=== PATIENT | male | born 1980 | race Caucasian/White ===

== ENCOUNTER 2018-06-09 14:11 | Emergency (ER) | payer BC ==
--- NOTE | 2018-06-09 14:23 | EDM.PDOC ---
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 Pt stated, he does not have good night sleeps, because he wake up 4-5 times at night, due to numbness at his left arm, S/P ulnar nerve relocation at the elbow. His girlfriend told him he is snoring really loud at night. He did not have a sleep study in the past. No trauma, his favored food is pasta, No C/P no N/V/D No diaphoresis. No other acute medical issues. BP 154/74 Pulse 82 RR 17 Pulse ox 97 % on RA Temp 36.4 Onset Date: 06/09/18 Onset Time: 13:00 Duration: Minutes:, Intermittent Location: Reports: Generalized Quality: Reports: Other (numbness left forearm+) Severity: Moderate Improves with: Reports: Rest Worsens with: Reports: Movement Context: Reports: Other (near syncopy) Associated Symptoms: Reports: Syncope (extremely tired, lethargic) - Related Data Allergies Allergy/AdvReac Type Severity Reaction Status Date / Time Penicillins Allergy unknown Verified 10/03/15 07:18 Home Meds: Home Meds Losartan/Hydrochlorothiazide [Losartan-HCTZ 50-12.5 MG] 1 each PO DAILY #10 tablet 06/09/18 [Rx] Past Medical History HEENT History: Reports: Impaired Vision Gastrointestinal History: Reports: GERD Neurological History: Reports: Headaches, Chronic Psychiatric History: Reports: Depression Dermatologic History: Reports: Other (See Below) Other Dermatologic History: NONTHROMBOCYTOPENIA PURPURAS - Past Surgical History GI Surgical History: Reports: Appendectomy ED ROS GENERAL - Review of Systems Review Of Systems: See Below Constitutional: Reports: Malaise, Weakness HEENT: Reports: No Symptoms Respiratory: Reports: No Symptoms Cardiovascular: Reports: Blood Pressure Problem Endocrine: Reports: No Symptoms GI/Abdominal: Reports: No Symptoms : Reports: No Symptoms Musculoskeletal: Reports: No Symptoms Skin: Reports: No Symptoms Neurological: Reports: Numbness (left forearm finger 4+5) Psychiatric: Reports: No Symptoms Hematologic/Lymphatic: Reports: No Symptoms Immunologic: Reports: No Symptoms ED EXAM, NEURO - Physical Exam Exam: See Below Exam Limited By: No Limitations General Appearance: Alert, WD/WN, Mild Distress, Obese (morbid) Eye Exam: Bilateral Eye: Normal Inspection Ears: Normal External Exam Nose: Normal Inspection Throat/Mouth: Normal Inspection Head Exam: Atraumatic, Normocephalic Neck: Normal Inspection, Supple, Non-Tender, Full Range of Motion Respiratory/Chest: No Respiratory Distress, Lungs Clear, Normal Breath Sounds Cardiovascular: Normal Peripheral Pulses, Regular Rate, Rhythm, No Edema, No Gallop, No JVD, No Murmur, No Rub GI/Abdominal: Normal Bowel Sounds, Soft, Non-Tender, No Organomegaly, No Abnormal Bruit, No Mass, Pelvis Stable (Male) Exam: Deferred Rectal (Males) Exam: Deferred Neurological: CN II-XII Intact, Normal Plantar Flexion, Oriented x 3, Difficulty Walking (because he is too tired) Back Exam: Normal Inspection, Full Range of Motion Extremities: Normal Inspection, Normal Range of Motion, Non-Tender, No Pedal Edema, Normal Capillary Refill Psychiatric: Normal Affect, Normal Mood Skin Exam: Warm, Dry, Intact, Normal Color, No Rash EKG INTERPRETATION EKG Date: 06/09/18 Time: 14:30 Rhythm: NSR Rate (Beats/Min): 76 [place]: Normal P-Wave: Present QRS: Normal ST-T: Normal QT: Normal Comparison: NA - No Prior EKG Course - Vital Signs Text/Narrative:: 37 y.o.w.m.morbid obese -360 lbs est- 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 Pt stated, he does not have good night sleeps, because he wake up 4-5 times at night, due to numbness at his left arm, S/P ulnar nerve relocation at the elbow. His girlfriend told him he is snoring really loud at night. He did not have a sleep study in the past. No trauma, his favored food is pasta, No C/P no N/V/D No diaphoresis. No other acute medical issues. 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 3) HTN, goal to be determined 4) Hypokalemia 5) Morbid obesity (360lbs est.) Tx: Potassium Reexam: Pt was feeling better, walked to the bathroom, BP meds were not given in the ed because his very initial BP -checked by parvin was 140/67) Plan: D/C with instructions Last Recorded V/S: Last Vital Signs Temp 36.4 C 06/09/18 14:13 Pulse 78 06/09/18 17:15 Resp 17 06/09/18 14:16 BP 158/76 H 06/09/18 17:15 Pulse Ox 100 06/09/18 15:00 Orthostatic Blood Pressure [ 160/101 Standing] Orthostatic Blood Pressure [ 161/99 Sitting] Orthostatic Blood Pressure [ 160/85 Supine] - Orders/Labs/Meds Orders: Active Orders 24 hr Category Date Time Status Orthostatic Vital Signs [RC] ASDIRECTED Care 06/09/18 15:46 Active Head wo Cont [CT] Stat Exams 06/09/18 14:35 Taken EKG 12 Lead [EK] Routine Ther 06/09/18 14:20 Ordered Labs: Laboratory Tests 06/09/18 06/09/18 06/09/18 Range/Units 14:23 14:40 14:40 WBC 9.8 (4.5-12.0) X10-3/uL RBC 5.18 (4.30-5.75) x10(6)uL Hgb 15.0 (11.5-15.5) g/dL Hct 44.2 (30.0-51.3) % MCV 85.4 (80-96) fL MCH 29.0 (27.7-33.6) pg MCHC 33.9 (32.2-35.4) g/dL RDW 12.8 (11.5-15.5) % Plt Count 258 (125-369) X10(3)uL MPV 8.8 (7.4-10.4) fL Neut % (Auto) 68.1 (46-82) % Lymph % (Auto) 23.6 (13-37) % Stevens % (Auto) 6.2 (4-12) % Eos % (Auto) 2 (1.0-5.0) % Baso % (Auto) 1 (0-2) % Neut # (Auto) 6.7 (1.6-8.3) # Lymph # (Auto) 2.3 (0.6-5.0) # Stevens # (Auto) 0.6 (0.0-1.3) # Eos # (Auto) 0.2 (0.0-0.8) # Baso # (Auto) 0.0 (0.0-0.2) # PT 9.9 (8.7-11.1) INR 1.02 (0.89-1.13) Sodium (135-145) mmol/L Potassium (3.5-5.3) mmol/L Chloride (100-110) mmol/L Carbon Dioxide (21-32) mmol/L BUN (7-18) mg/dL Creatinine (0.70-1.30) mg/dL Est Cr Clr Drug Dosing Estimated GFR (MDRD) (>60) BUN/Creatinine Ratio (9-20) Glucose (80-116) mg/dL POC Glucose 109 (80-116) mg/dL Hemoglobin A1c (4.5-6.2) % Calcium (8.6-10.2) mg/dL Magnesium (1.8-2.5) mg/dL Total Bilirubin (0.1-1.3) mg/dL Direct Bilirubin (0.10-0.20) mg/dL AST (5-25) IU/L ALT (12-36) U/L Alkaline Phosphatase (56-112) IU/L Troponin I (<0.017-0.056) ng/mL Total Protein (6.0-8.0) g/dL Albumin (3.5-5.2) g/dL Amylase (25-115) U/L Urine Color (YELLOW) Urine Appearance (CLEAR) Urine pH (5.0-6.5) Ur Specific [place] (1.010-1.025) Urine Protein (NEGATIVE) mg/dL Urine Glucose (UA) (NEGATIVE) mg/dL Urine Ketones (NEGATIVE) mg/dL Urine Occult Blood (NEGATIVE) Urine Nitrite (NEGATIVE) Urine Bilirubin (NEGATIVE) Urine Urobilinogen (NEGATIVE) mg/dL Ur Leukocyte Esterase (NEGATIVE) Urine RBC (0) Urine WBC (0) Ur Squamous Epith Cells (NS,R,O) Urine Bacteria (NS) Urine Opiates Screen (NEGATIVE) Ur Oxycodone Screen (NEGATIVE) Ur Propoxyphene Screen (NEGATIVE) Ur Barbituates Screen (NEGATIVE) Ur Tricyclics Screen (NEGATIVE) Ur Phencyclidine Scrn (NEGATIVE) Ur Amphetamine Screen (NEGATIVE) Urine MDMA Screen (NEGATIVE) U Benzodiazepines Scrn (NEGATIVE) U Cocaine Metab Screen (NEGATIVE) U Marijuana (THC) Screen (NEGATIVE) Ethyl Alcohol (<0.03) % 06/09/18 06/09/18 06/09/18 Range/Units 14:40 14:40 14:40 WBC (4.5-12.0) X10-3/uL RBC (4.30-5.75) x10(6)uL Hgb (11.5-15.5) g/dL Hct (30.0-51.3) % MCV (80-96) fL MCH (27.7-33.6) pg MCHC (32.2-35.4) g/dL RDW (11.5-15.5) % Plt Count (125-369) X10(3)uL MPV (7.4-10.4) fL Neut % (Auto) (46-82) % Lymph % (Auto) (13-37) % Stevens % (Auto) (4-12) % Eos % (Auto) (1.0-5.0) % Baso % (Auto) (0-2) % Neut # (Auto) (1.6-8.3) # Lymph # (Auto) (0.6-5.0) # Stevens # (Auto) (0.0-1.3) # Eos # (Auto) (0.0-0.8) # Baso # (Auto) (0.0-0.2) # PT (8.7-11.1) INR (0.89-1.13) Sodium 139 (135-145) mmol/L Potassium 3.3 L (3.5-5.3) mmol/L Chloride 103 (100-110) mmol/L Carbon Dioxide 28 (21-32) mmol/L BUN 14 (7-18) mg/dL Creatinine 1.1 (0.70-1.30) mg/dL Est Cr Clr Drug Dosing TNP Estimated GFR (MDRD) > 60 (>60) BUN/Creatinine Ratio 12.7 (9-20) Glucose 110 (80-116) mg/dL POC Glucose (80-116) mg/dL Hemoglobin A1c 5.9 (4.5-6.2) % Calcium 9.0 (8.6-10.2) mg/dL Magnesium (1.8-2.5) mg/dL Total Bilirubin (0.1-1.3) mg/dL Direct Bilirubin (0.10-0.20) mg/dL AST (5-25) IU/L ALT (12-36) U/L Alkaline Phosphatase (56-112) IU/L Troponin I < 0.017 L (<0.017-0.056) ng/mL Total Protein (6.0-8.0) g/dL Albumin (3.5-5.2) g/dL Amylase (25-115) U/L Urine Color (YELLOW) Urine Appearance (CLEAR) Urine pH (5.0-6.5) Ur Specific [place] (1.010-1.025) Urine Protein (NEGATIVE) mg/dL Urine Glucose (UA) (NEGATIVE) mg/dL Urine Ketones (NEGATIVE) mg/dL Urine Occult Blood (NEGATIVE) Urine Nitrite (NEGATIVE) Urine Bilirubin (NEGATIVE) Urine Urobilinogen (NEGATIVE) mg/dL Ur Leukocyte Esterase (NEGATIVE) Urine RBC (0) Urine WBC (0) Ur Squamous Epith Cells (NS,R,O) Urine Bacteria (NS) Urine Opiates Screen (NEGATIVE) Ur Oxycodone Screen (NEGATIVE) Ur Propoxyphene Screen (NEGATIVE) Ur Barbituates Screen (NEGATIVE) Ur Tricyclics Screen (NEGATIVE) Ur Phencyclidine Scrn (NEGATIVE) Ur Amphetamine Screen (NEGATIVE) Urine MDMA Screen (NEGATIVE) U Benzodiazepines Scrn (NEGATIVE) U Cocaine Metab Screen (NEGATIVE) U Marijuana (THC) Screen (NEGATIVE) Ethyl Alcohol (<0.03) % 06/09/18 06/09/18 06/09/18 Range/Units 14:40 14:40 15:31 WBC (4.5-12.0) X10-3/uL RBC (4.30-5.75) x10(6)uL Hgb (11.5-15.5) g/dL Hct (30.0-51.3) % MCV (80-96) fL MCH (27.7-33.6) pg MCHC (32.2-35.4) g/dL RDW (11.5-15.5) % Plt Count (125-369) X10(3)uL MPV (7.4-10.4) fL Neut % (Auto) (46-82) % Lymph % (Auto) (13-37) % Stevens % (Auto) (4-12) % Eos % (Auto) (1.0-5.0) % Baso % (Auto) (0-2) % Neut # (Auto) (1.6-8.3) # Lymph # (Auto) (0.6-5.0) # Stevens # (Auto) (0.0-1.3) # Eos # (Auto) (0.0-0.8) # Baso # (Auto) (0.0-0.2) # PT (8.7-11.1) INR (0.89-1.13) Sodium (135-145) mmol/L Potassium (3.5-5.3) mmol/L Chloride (100-110) mmol/L Carbon Dioxide (21-32) mmol/L BUN (7-18) mg/dL Creatinine (0.70-1.30) mg/dL Est Cr Clr Drug Dosing Estimated GFR (MDRD) (>60) BUN/Creatinine Ratio (9-20) Glucose (80-116) mg/dL POC Glucose (80-116) mg/dL Hemoglobin A1c (4.5-6.2) % Calcium (8.6-10.2) mg/dL Magnesium 2.1 (1.8-2.5) mg/dL Total Bilirubin 0.5 (0.1-1.3) mg/dL Direct Bilirubin 0.10 (0.10-0.20) mg/dL AST 25 (5-25) IU/L ALT 56 H (12-36) U/L Alkaline Phosphatase 101 (56-112) IU/L Troponin I (<0.017-0.056) ng/mL Total Protein 7.5 (6.0-8.0) g/dL Albumin 3.6 (3.5-5.2) g/dL Amylase 35 (25-115) U/L Urine Color (YELLOW) Urine Appearance (CLEAR) Urine pH (5.0-6.5) Ur Specific [place] (1.010-1.025) Urine Protein (NEGATIVE) mg/dL Urine Glucose (UA) (NEGATIVE) mg/dL Urine Ketones (NEGATIVE) mg/dL Urine Occult Blood (NEGATIVE) Urine Nitrite (NEGATIVE) Urine Bilirubin (NEGATIVE) Urine Urobilinogen (NEGATIVE) mg/dL Ur Leukocyte Esterase (NEGATIVE) Urine RBC (0) Urine WBC (0) Ur Squamous Epith Cells (NS,R,O) Urine Bacteria (NS) Urine Opiates Screen (NEGATIVE) Ur Oxycodone Screen (NEGATIVE) Ur Propoxyphene Screen (NEGATIVE) Ur Barbituates Screen (NEGATIVE) Ur Tricyclics Screen (NEGATIVE) Ur Phencyclidine Scrn (NEGATIVE) Ur Amphetamine Screen (NEGATIVE) Urine MDMA Screen (NEGATIVE) U Benzodiazepines Scrn (NEGATIVE) U Cocaine Metab Screen (NEGATIVE) U Marijuana (THC) Screen (NEGATIVE) Ethyl Alcohol < 0.03 (<0.03) % 06/09/18 06/09/18 Range/Units 16:07 16:07 WBC (4.5-12.0) X10-3/uL RBC (4.30-5.75) x10(6)uL Hgb (11.5-15.5) g/dL Hct (30.0-51.3) % MCV (80-96) fL MCH (27.7-33.6) pg MCHC (32.2-35.4) g/dL RDW (11.5-15.5) % Plt Count (125-369) X10(3)uL MPV (7.4-10.4) fL Neut % (Auto) (46-82) % Lymph % (Auto) (13-37) % Stevens % (Auto) (4-12) % Eos % (Auto) (1.0-5.0) % Baso % (Auto) (0-2) % Neut # (Auto) (1.6-8.3) # Lymph # (Auto) (0.6-5.0) # Stevens # (Auto) (0.0-1.3) # Eos # (Auto) (0.0-0.8) # Baso # (Auto) (0.0-0.2) # PT (8.7-11.1) INR (0.89-1.13) Sodium (135-145) mmol/L Potassium (3.5-5.3) mmol/L Chloride (100-110) mmol/L Carbon Dioxide (21-32) mmol/L BUN (7-18) mg/dL Creatinine (0.70-1.30) mg/dL Est Cr Clr Drug Dosing Estimated GFR (MDRD) (>60) BUN/Creatinine Ratio (9-20) Glucose (80-116) mg/dL POC Glucose (80-116) mg/dL Hemoglobin A1c (4.5-6.2) % Calcium (8.6-10.2) mg/dL Magnesium (1.8-2.5) mg/dL Total Bilirubin (0.1-1.3) mg/dL Direct Bilirubin (0.10-0.20) mg/dL AST (5-25) IU/L ALT (12-36) U/L Alkaline Phosphatase (56-112) IU/L Troponin I (<0.017-0.056) ng/mL Total Protein (6.0-8.0) g/dL Albumin (3.5-5.2) g/dL Amylase (25-115) U/L Urine Color Yellow (YELLOW) Urine Appearance Clear (CLEAR) Urine pH 8.0 H (5.0-6.5) Ur Specific [place] 1.015 (1.010-1.025) Urine Protein Negative (NEGATIVE) mg/dL Urine Glucose (UA) Normal (NEGATIVE) mg/dL Urine Ketones Negative (NEGATIVE) mg/dL Urine Occult Blood Negative (NEGATIVE) Urine Nitrite Negative (NEGATIVE) Urine Bilirubin Negative (NEGATIVE) Urine Urobilinogen Normal (NEGATIVE) mg/dL Ur Leukocyte Esterase Negative (NEGATIVE) Urine RBC Not seen (0) Urine WBC 0-5 (0) Ur Squamous Epith Cells Rare (NS,R,O) Urine Bacteria Few H (NS) Urine Opiates Screen Negative (NEGATIVE) Ur Oxycodone Screen Negative (NEGATIVE) Ur Propoxyphene Screen Negative (NEGATIVE) Ur Barbituates Screen Negative (NEGATIVE) Ur Tricyclics Screen Negative (NEGATIVE) Ur Phencyclidine Scrn Negative (NEGATIVE) Ur Amphetamine Screen Negative (NEGATIVE) Urine MDMA Screen Negative (NEGATIVE) U Benzodiazepines Scrn Negative (NEGATIVE) U Cocaine Metab Screen Negative (NEGATIVE) U Marijuana (THC) Screen Negative (NEGATIVE) Ethyl Alcohol (<0.03) % Meds: Medications Discontinued Medications Generic Name Dose Route Start Last Admin Trade Name Freq PRN Reason Stop Dose Admin Potassium Chloride 40 meq 06/09/18 17:26 06/09/18 17:38 Klor-Con M20 PO 06/09/18 17:27 40 meq ONETIME ONE Administration Departure - Departure Time of Disposition: 17:05 Disposition: Home, Self-Care 01 Condition: Good (HTN) Clinical Impression: HTN (hypertension) with goal to be determined, Obesity, Vasovagal near syncope , Hypokalemia Neuropraxia of left ulnar nerve Qualifiers: Encounter type: subsequent encounter Qualified Code(s): S54.02XD - Injury of ulnar nerve at forearm level, left arm, subsequent encounter Sleep apnea syndrome Qualifiers: Sleep apnea type: other type Qualified Code(s): G47.39 - Other sleep apnea - Discharge Information Prescriptions: Losartan/Hydrochlorothiazide [Losartan-HCTZ 50-12.5 MG] 1 each PO DAILY #10 tablet Instructions: Near-Syncope, [id number], Hypertension, [id number] Referrals: Trino Johnston MD [Primary Care Provider] - Forms: ED Department Discharge Additional Instructions: Please follow up with your PMD/Neurologist regarding your numbness at your left arm. A sleep study may be necessary regarding your sleepiness during daytime, your SBP was above 160 since you were in the ED, which needs urgent evaluation/ treatment. Please come back if your symptoms get worse acutely - My Orders Last 24 Hours: My Active Orders 06/09/18 14:20 EKG 12 Lead [EK] Routine 06/09/18 14:35 Head wo Cont [CT] Stat 06/09/18 15:46 Orthostatic Vital Signs [RC] ASDIRECTED - Assessment/Plan Last 24 Hours: My Active Orders 06/09/18 14:20 EKG 12 Lead [EK] Routine 06/09/18 14:35 Head wo Cont [CT] Stat 06/09/18 15:46 Orthostatic Vital Signs [RC] ASDIRECTED
[2018-06-09 15:04] LABS: HEMOGLOBIN A1C 5.9 % (4.5-6.2)
[2018-06-09] MEDS ORDERED: Potassium Chloride 20 MEQ Tab.ER PO ONE (17:26)
[2018-06-09 18:12] VITALS: BP 158/76
--- NOTE | 2018-06-12 08:23 | CT ---
INDICATION: Trauma, numbness left side of face. CT HEAD WITHOUT CONTRAST: Spiral examination of the brain was obtained with sagittal and coronal reconstructions, 06/09/18 - no comparisons. Total exam DLP = 738.69 mGy-cm. There is a tiny retention cyst along the cranial aspect of the right maxillary antrum. The paranasal sinuses and mastoid air cells were otherwise unremarkable and well-aerated. No cranial abnormality was suggested. No shift of midline structures, ventricular abnormalities, or abnormal areas of density were identified - no bleeding site or hematoma was seen. IMPRESSION: No acute intracranial abnormality - normal CT brain. Report was called to Dr. Sargent at 1532 hours on 06/10/18. [facility]
== END 2018-06-09 17:45 | disposition home or self-care (01) ==
LOC: FB.ED 14:11
DX: R55 Syncope and collapse (principal); G47.39 Other sleep apnea; E87.6 Hypokalemia; S54.02XD Injury of ulnar nerve at forearm level, left arm, subsequent encounter; I10 Essential (primary) hypertension; E66.9 Obesity, unspecified; Z88.0 Allergy status to penicillin; Z79.899 Other long term (current) drug therapy; X58.XXXD Exposure to other specified factors, subsequent encounter
CPT/HCPCS: 36415; 70450; 80048; 80076; 80305; 81001; 82150; 82962; 83036; 83735; 84484; 85025; 85610; 93005; 99285; A9270; G0480